=== PATIENT | female | born 1955 | race Asian ===

== ENCOUNTER 2017-09-29 06:01 | Day surgery (SDC) | payer BC ==
[2017-09-29] VITALS (18 sets, daily range): BP systolic 82–123; BP diastolic 48–66; PULSE 64–82; RESP 10–20; Ht 154.9 cm; Wt 79.4 kg
[~2017-09-29] VITALS: Ht 154.9 cm; Wt 79.4 kg
[~2017-09-29 06:01] MED LIST: CEFAZOLIN 2 GM/50 ML (PMX) 50 ML IVPB SCH; D5-NS + KCL 20 MEQ 1,000 ML IV SCH; metroNIDAZOLE 500 MG/NS (PMX) 100 ML IVPB SCH
[2017-09-29] MEDS ORDERED: LEVO50TA74 PO (07:02)
[2017-09-29] MEDS ORDERED: PROPOFOL 20 ML ONE (07:33)
[2017-09-29] MEDS ORDERED: CEFAZOLIN 1 GM INJ ONE (07:33)
[2017-09-29] MEDS ORDERED: MIDAZOLAM 1 MG/ML 2 ML INJ ONE (07:34)
[2017-09-29] MEDS ORDERED: FENTAnyl 50 MCG/ML VIAL ONE (07:34)
--- NOTE | 2017-09-29 08:02 | HPN ---
Date/Time of Note Date/Time of Note DATE: 09/29/17 TIME: 08:02 Interval H&P Admission Note Pt. seen H&P reviewed: No system changes WYATT GAVIRIA MD Sep 29, 2017 08:02
[2017-09-29] MEDS ORDERED: ONDANSETRON 4 MG INJ ONE (08:22)
[2017-09-29] MEDS ORDERED: KETOROLAC 30 MG INJ ONE (08:22)
[2017-09-29] MEDS ORDERED: DEXAMETHASONE 4 MG/ML 1 ML INJ ONE (08:22)
[2017-09-29] MEDS ORDERED: METOCLOPRAMIDE 10 MG INJ ONE (08:22)
[2017-09-29] MEDS ORDERED: ONDANSETRON 4 MG INJ IV PRN (08:30)
[2017-09-29] MEDS ORDERED: FENTAnyl 50 MCG/ML VIAL IV PRN ×3 (08:30)
[2017-09-29] MEDS ORDERED: MEPERIDINE 25 MG INJ IV PRN (08:30)
[2017-09-29] MEDS ORDERED: METOCLOPRAMIDE 10 MG INJ IV PRN (08:30)
[2017-09-29] MEDS ORDERED: morphine (1 MG/ML) 10ML SYRINGE IV PRN ×3 (08:30)
[2017-09-29] MEDS ORDERED: EPHEDrine SULFATE 50 MG/5 ML SYG IV PRN (08:30)
[2017-09-29] MEDS ORDERED: DIPHENHYDRAMINE 50 MG INJ IV PRN (08:30)
[2017-09-29] MEDS ORDERED: LABETALOL HCL 20MG INJ IV PRN (08:30)
--- NOTE | 2017-09-29 09:42 | SIPON ---
Date/Time of Note Date/Time of Note DATE: 09/29/17 TIME: 09:40 Operative Report Preoperative Diagnosis PMB Postoperative Diagnosis same path pending Operation/Procedure Performed D and C Surgeon see signature line kindergarten teacher assistant per op Anesthesia: general Estimated blood loss: minimal Transfusion Required none Specimen x2 Grafts/Implants none Complications none WYATT GAVIRIA MD Sep 29, 2017 09:41
--- NOTE | 2017-09-29 20:46 | OPR ---
Date/Time of Note Date/Time of Note DATE: 09/29/17 TIME: 20:44 Operative Report Free Text/Dictation OPERATIVE REPORT [facility] Name: [facility] Date: 09/29/17 Preoperative Diagnosis: Post menopausal bleeding Postoperative Diagnosis: same path pending Procedures: EUA and D @ C Surgeon: Dr. Gaviria Lens Shaper Grinder: TONO Anaesthesia: General Indication: The patient is a 62- year old patient with post menopausal bleeding and hyperplasia in the past who required a diagnosis. Findings and Procedure: After being prepped and draped an EUA was performed with the following findings : mildly enlarged uterus . The cervix was clasped with a tennaculum and dilated appropriately. At this time the cavity was curetted without incident. A frozen section was not performed and cancer was not confirmed. Tissue was sent for permanent section. The patient tolerated the procedure well. Anatoliy Gaviria M.D. Procedure Date: Sep 28, 2017 Preoperative Diagnosis pending Postoperative Diagnosis pmb Operation/Procedure Performed as above Surgeon see signature line Lens Shaper Grinder as above Anesthesia Type: general Estimated Blood Loss: 0 - 10 ml's Transfusion none Specimen as above Grafts/Implants none Tubes/Drains as above Complications none Indications as above Procedure Description as above ANATOLIY GAVIRIA MD Sep 29, 2017 20:46
== END 2017-09-29 10:50 | disposition home or self-care (01) ==
LOC: SDS 06:01
DX: N95.0 Postmenopausal bleeding (principal); N85.02 Endometrial intraepithelial neoplasia [EIN]; N85.2 Hypertrophy of uterus
CPT/HCPCS: 58120; 86850; 86900; 86901; 86920; J0690; J1100; J1885; J2250; J2405; J2765; J3010; Z7512; Z7610; J3480